=== PATIENT | male | born 1935 | race Two or more races ===

== ENCOUNTER 2024-09-11 14:59 | Observation (INO) | payer OTHER ==
[~2024-09-11] VITALS: Ht 172.7 cm; Wt 80.0 kg
[2024-09-11] MEDS ORDERED: VANCOMYCIN PER PHARMACY 0 MG IV SCH (16:00)
--- NOTE | 2024-09-11 16:04 | ED.PDOC ---
History of Present Illness(SKN HPI Comments Leandro Beltrán is a 89-year-old male patient who presents to the ED with chief complaint of bilateral foot wounds associated with bilateral lower limb swelling, per daughter is worse on the right side since it is larger in size, while left foot had smaller and multiple blisters, which started the day of his visit. Patient is wheelchair-bound, has been offered in multiple occasions The wounds are described as blisters filled with serous fluid. Daughter says that he presents isolated moments of confusion, but he is mainly well orientated. Denies fever, chills, chest pain, dyspnea, nausea, vomiting, diarrhea, bleeding, dysuria, oliguria, sick contacts and motor or sensory deficits. 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 Denies current tobacco, alcohol and other drug abuse Allergies: Statins (per family he presented severe adverse effect of altered mental status) Home medication: Lasix, spironolactone, losartan. Previously was on Flomax was discontinued because of low blood pressure Chief Complaint: Wound Check Time Seen by MD: 15:21 Primary Care Provider: mari Allergies: Coded Allergies: Statins (Unverified Adverse Reaction, Unknown, 09/11/24) Patint presented altered mental status Mode of Arrival: Ambulatory Physical Exam General Appearance: No Apparent Distress, Normal HEENT: Normal ENT Inspection, Pharynx Normal, TMs Normal Neck: Full Range of Motion, Non-Tender, Normal, Normal Inspection Respiratory: Chest Non-Tender, Lungs Clear, No Accessory Muscle Use, No Respiratory Distress, Normal Breath Sounds Cardiovascular: No Edema, No JVD, No Murmur, No Gallop, Normal Peripheral Pulses, Regular Rate/Rhythm Breast Exam: Deferred Gastrointestinal: No Organomegaly, Non Tender, No Pulsatile Mass, Normal Bowel Sounds, Soft Genitalia: Deferred Pelvic: Deferred Rectal: Deferred Extremities: Leg edema, Normal capillary refill, Normal range of motion, Pedal edema, Swelling, Tender Neurologic: Alert, 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 Was a procedure done?: No Differential Diagnosis (INTG) Differential Diagnosis: Cellulitis, Laceration, Puncture Wound Differential Diagnosis: Other (Peripheral vascular disease) Differential Diagnosis: Other (Abscess) Abscess: Abscess, Gas Gangrene Differential Diagnosis: Osteomyelitis X-Ray, Labs, Meds, VS Vital Signs Date Time Temp Pulse Resp B/P (MAP) Pulse Ox O2 Delivery O2 Flow Rate FiO2 09/12/24 08:17 97.5 86 17 108/57 (74) 95 97.5 09/12/24 02:14 80 18 101/72 (82) 90 09/11/24 18:26 97 17 99 Room Air* 0 21 09/11/24 17:48 98.0 97 17 146/72 (96) 99 98.0 09/11/24 15:15 97.4 87 20 157/96 (116) 99 Lab Test 09/12/24 08:03 09/11/24 19:30 09/11/24 17:10 09/11/24 17:00 Range/Units White Blood Count 8.9 9.1 4.4-10.8 10^3/uL Red Blood Count 3.60 L 3.91 L 4.5-5.90 10^6/uL Hemoglobin 12.7 L 13.7 13.5-17.5 g/dL Hematocrit 36.7 L 39.6 L 41.0-53.0 % Mean Corpuscular Volume 102.0 H 101.4 H 80.0-100.0 fL Mean Corpuscular Hemoglobin 35.3 H 35.0 H 28.0-32.0 pg Mean Corpuscular Hemoglobin Concent 34.6 34.5 32.0-36.0 g/dL Red Cell Distribution Width 15.6 H 16.0 H 11.8-14.3 % Platelet Count 113 L 116 L 140-450 10^3/uL Mean Platelet Volume 7.8 8.3 6.9-10.8 fL Neutrophils (%) (Auto) 66.6 70.4 37.0-80.0 % Lymphocytes (%) (Auto) 17.1 14.4 10.0-50.0 % Monocytes (%) (Auto) 12.9 H 12.9 H 0.0-12.0 % Eosinophils (%) (Auto) 2.8 2.0 0.0-7.0 % Basophils (%) (Auto) 0.6 0.3 0.0-2.0 % Neutrophils # (Auto) 5.9 6.4 1.6-8.6 10 ^3/uL Lymphocytes # (Auto) 1.5 1.3 0.4-5.4 10 ^3/uL Monocytes # (Auto) 1.1 1.2 0-1.3 10 ^3/uL Eosinophils # (Auto) 0.2 0.2 0-0.8 10 ^3/uL Basophils # (Auto) 0.1 0 0-0.2 10 ^3/uL Nucleated Red Blood Cells 0.2 0.1 % Creatinine 1.05 0.91 0.700-1.30 mg/dL Glomerular Filtration Rate Calc 68 81 >90 mL/min Random Vancomycin Level 4.7 L 5-10 ug/mL Lactic Acid Level 2.2 *H 3.2 *H 0.4-2.0 mmol/L Free Thyroxine (T4) Calculated 1.18 0.89-1.76 ng/dL Free Triiodothyronine (T3) pg/mL 2.85 2.3-4.2 pg/mL Hepatitis A IgM Antibody Pending Hepatitis B Surface Antigen Pending Hepatitis B Core IgM Antibody Pending Hepatitis C Antibody Pending Prothrombin Time 11.9 H 9.3-11.8 sec Prothrombin Time INR 1.14 0.9-1.15 Activated Partial Thromboplast Time 31.4 24.5-34.5 SEC Sodium Level 137 136-145 mmol/L Potassium Level 4.0 3.5-5.1 mmol/L Chloride Level 102 98-107 mmol/L Carbon Dioxide Level 30 20-31 mmol/L Anion Gap 5 5-15 Blood Urea Nitrogen 21 9-23 mg/dL BUN/Creatinine Ratio 23.1 H 10.0-20.0 Serum Glucose 91 74-106 mg/dL Calcium Level 9.2 8.7-10.4 mg/dL Magnesium Level 1.9 1.6-2.6 mg/dL Total Bilirubin 3.4 H 0.2-1.0 mg/dL Aspartate Amino Transferase (AST) 63 H 13-40 U/L Alanine Aminotransferase (ALT) 49 H 7-40 U/L Alkaline Phosphatase 295 H 46-116 U/L Total Protein 6.6 5.7-8.2 g/dL Albumin 3.2 3.2-4.8 g/dL Thyroid Stimulating Hormone (TSH) 5.27 H 0.55-4.78 uIU/mL Ammonia 39 H 11-32 umol/L Test 09/11/24 16:32 Range/Units Urine Color Yellow Yellow Urine Clarity Clear Clear Urine pH 6.5 5.0-9.0 Urine Specific [place] 1.010 1.001-1.035 Urine Protein Negative Negative Urine Ketones Negative Negative Urine Blood Negative Negative /uL Urine Nitrite Negative Negative Urine Bilirubin Negative Negative Urine Urobilinogen 4 H Negative mg/dL Urine Leukocyte Esterase 1+ Negative /uL Urine RBC 1 0 - 3 /hpf Urine WBC 6 0 - 3 /hpf Urine Squamous Epithelial Cells Few <5 /hpf Urine Amorphous Crystals Few None Seen /hpf Urine Bacteria None seen None Seen /hpf Urine Hyaline Casts Few 0 - 2 /lpf Urine Glucose Normal Normal mg/dL Urine Opiates Screen Neg NEGATIVE Urine Fentanyl Screen Neg NEGATIVE Urine Barbiturates Screen Neg NEGATIVE Urine Phencyclidine Screen Neg NEGATIVE Urine Amphetamines Screen Neg NEGATIVE Urine Benzodiazepines Screen Neg NEGATIVE Urine Cocaine Screen Neg NEGATIVE Urine Cannabinoids Screen Pos NEGATIVE Microbiology Date/Time Source Procedure Growth Status 09/11/24 17:00 Blood Blood Culture - Preliminary NO GROWTH AFTER 24 HOURS OF INCUBATION. Resulted 09/11/24 17:00 Blood Blood Culture - Preliminary NO GROWTH AFTER 24 HOURS OF INCUBATION. Resulted 09/11/24 16:32 Voided Urine Urine Culture - Preliminary Resulted PROCEDURE(s): BLEAD - BiLat Low Ext Art Duplex REASON: Bilateral foot wound ORDER NUMBER(s): [id number], ACCESSION NUMBER(s): [id number] EXAM: US BILAT LOW EXT ART DUPLEX HISTORY: Bilateral foot wound COMPARISON: None TECHNIQUE: Real-time grayscale and color Doppler images of the bilateral lower extremities were obtained with spectral waveform analysis. Findings: Arterial peak systolic velocities reported in units of centimeters per second (cm/sec): Right side: Common femoral - 154 Profunda femoris - 316 Proximal SFA - 89 Mid SFA - 240 Distal SFA - 59 Popliteal - 75 Posterior tibial - 0 Dorsalis pedis - not visualized Diffuse monophasic waveforms. Left side: Common femoral - 126 Profunda femoris - 166 Proximal SFA - 82 Mid SFA - 54 Distal SFA - 47 Popliteal - 61 Posterior tibial - 40 Dorsalis pedis - not visualized Diffuse monophasic waveforms. IMPRESSION: 1. 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 2. 50-75% stenosis of the right profunda femoris and mid superficial femoral arteries. 3. Approximately 30-49% stenosis of the right common femoral and left profunda femoris arteries. Critical Result: Vascular occlusion Findings discussed with Dr. Pool at 09/11/2024 05:45 PM, and acknowledged receipt and understanding of the findings. Patient alert. Chronic symptom. Vitals stable. Answering all questions. CT shows decreased flow. Spoke with [facility] physician. Will be followed by our vascular surgeon. Reviewed his history. Explained to the patient. Continue cardiac monitoring. X-Ray, Labs, Meds, VS Comment Addendum by Dr. Corine Park: Patient seen and evaluated in conjunction with Dr. Rao. Agree with assessment, treatment and plan. On my exam, there is capillary refill to both lower extremities, although the DP pulse is nonpalpable on the right lower extremity. The lower extremities are equally cool to the touch bilaterally. Right lower extremity arterial duplex: IMPRESSION: 1. 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 2. 50-75% stenosis of the right profunda femoris and mid superficial femoral arteries. 3. Approximately 30-49% stenosis of the right common femoral and left profunda femoris arteries. Critical Result: Vascular occlusion I discussed the case with hospitalist, Dr. Quiñones, who evaluated the patient in the ED. He ordered CT angio of the left lower extremity to further evaluate the arterial system, as it is unclear whether or not cardiology or vascular surgery would be able to address the occlusion here. Patient may require higher level of care transfer for vascular surgical evaluation. He requested we recontact him when CT angio results are available. Patient endorsed to the overnight ED physician Dr. Peterson follow-up on CT angio results and recontact Dr. Quiñones for disposition. Time of 1ST Reevaluation: 22:49 Reevaluation 1ST: Improved Patient Education/Counseling: Diagnosis, Treatment Family Education/Counseling: Diagnosis, Treatment Departure 1 Departure Time of Disposition: 22:49 Impression: Primary Impression: Wound, open, foot Qualified Codes: S91.301A - Unspecified open wound, right foot, initial encounter Additional Impressions: Cellulitis of right lower extremity Occlusion of artery of lower extremity Disposition: ADMITTED INPATIENT Admit to: Med Surg Condition: Guarded Critical Care Note Critical Care Time?: Yes (45 min-critical care time only) Critical care comment: Critical care time including multiple bedside re-evaluations, review of lab and imaging studies, and discussion of the case with the admitting provider. Patient is high risk for hemodynamic and/or metabolic decompensation. Stability Stability form required: No Heart Score Heart Score: Heart Score Response (Comments) Value History N/A 0 EKG N/A 0 Age N/A 0 Risk Factors N/A 0 Troponin N/A 0 Total 0 TY RAO Sep 11, 2024 16:03 VERONICA ROWELL MD Sep 11, 2024 22:55 ROXY ESPINOZA MD Sep 12, 2024 08:31
--- NOTE | 2024-09-11 16:06 | DVH ---
XY CHEST TWO VIEWS ROUTINE CLINICAL HISTORY: CHF COMPARISON: None TECHNIQUE: Frontal and lateral view of the chest was obtained FINDINGS: Lines and Tubes: None Lungs: No focal consolidation. Pleura: Small bilateral effusions. Cardiomediastinal contours: Unremarkable Bones: No acute osseous abnormality. IMPRESSION: Small bilateral effusions.
[2024-09-11] MEDS ORDERED: VANCOMYCIN 1GM/250ML KIT 250 ML IV ONE (16:30)
--- NOTE | 2024-09-11 17:02 | DVH ---
BILATERAL LOWER EXTREMITY VENOUS DOPPLER CLINICAL HISTORY: Bilateral feet wound Technique: Duplex Doppler evaluation of the deep venous systems of both lower extremities from the co mmon femoral veins to the popliteal veins including color Doppler and spectral/pulsed waveform analys is was performed. COMPARISON: None FINDINGS: The study is limited secondary to lower extremity edema. The distal right superficial femoral and lef t posterior tibial veins are not adequately seen on the current study. The right and left common femoral, left superficial femoral, popliteal, right posterior tibial and p eroneal veins appear patent with normal augmentation, phasicity, compressibility and color-flow. IMPRESSION: 1. There is no sonographic evidence for DVT in the visualized bilateral lower extremity veins. 2. The distal right superficial femoral and left popliteal veins are not adequately seen on the curre nt study. HS:Y
[2024-09-11 17:31] LABS: Basophils # (auto) 0 10 ^3/uL (0-0.2); Eosinophils # (auto) 0.2 10 ^3/uL (0-0.8); Hemoglobin 13.7 g/dL (13.5-17.5); Monocytes # (auto) 1.2 10 ^3/uL (0-1.3); Monocytes % (auto) 12.9 % (0.0-12.0); Neutrophils # (auto) 6.4 10 ^3/uL (1.6-8.6)
--- NOTE | 2024-09-11 17:31 | DVH ---
INDICATION: Liver cirrhosis. Evaluate ascitic fluid TECHNIQUE: Multiple real-time sonographic images of the abdomen were obtained. COMPARISON: None FINDINGS: Hepatic parenchyma is echogenic suggesting steatosis. The liver measures 14 cm in length cm. No intrahepatic biliary ductal dilatation is noted. The gallbladder wall measures 0.4 cm and is unremarkable. Cholelithiasis noted. The common duct is not visualized. The right kidney measures 10.7 cm. No hydronephrosis. There is a 1.5 cm anechoic lesion midpole righ t kidney consistent with the cortical cyst. The pancreas is not well visualized due to obscuration from bowel gas. The visualized portions of the IVC and aorta are grossly unremarkable. IMPRESSION: 1. Liver measures 14 cm in length with findings suggesting steatosis. 2. Cholelithiasis is noted with mild thickening of the gallbladder wall. Common bile duct was not vis ualized. Ultrasound Granado's sign was not performed. HS:Y
[2024-09-11 17:32] LABS: Basophils % (auto) 0.3 % (0.0-2.0); Hematocrit 39.6 % (41.0-53.0); Lymphocytes # (auto) 1.3 10 ^3/uL (0.4-5.4); Lymphocytes % (auto) 14.4 % (10.0-50.0); Mean Corpuscular Hgb Conc. 34.5 g/dL (32.0-36.0); Mean Corpuscular Volume 101.4 fL (80.0-100.0); Neutrophils % (auto) 70.4 % (37.0-80.0); Nucleated Red Blood Cells % 0.1 %; Platelet Count (auto) 116 10^3/uL (140-450); Red Blood Cells 3.91 10^6/uL (4.5-5.90); White Blood Cell 9.1 10^3/uL (4.4-10.8)
--- NOTE | 2024-09-11 17:47 | DVH ---
EXAM: US BILAT LOW EXT ART DUPLEX HISTORY: Bilateral foot wound COMPARISON: None TECHNIQUE: Real-time grayscale and color Doppler images of the bilateral lower extremities were obta ined with spectral waveform analysis. Findings: Arterial peak systolic velocities reported in units of centimeters per second (cm/sec): Right side: Common femoral - 154 Profunda femoris - 316 Proximal SFA - 89 Mid SFA - 240 Distal SFA - 59 Popliteal - 75 Posterior tibial - 0 Dorsalis pedis - not visualized Diffuse monophasic waveforms. Left side: Common femoral - 126 Profunda femoris - 166 Proximal SFA - 82 Mid SFA - 54 Distal SFA - 47 Popliteal - 61 Posterior tibial - 40 Dorsalis pedis - not visualized Diffuse monophasic waveforms. IMPRESSION: 1. 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 2. 50-75% stenosis of the right profunda femoris and mid superficial femoral arteries. 3. Approximately 30-49% stenosis of the right common femoral and left profunda femoris arteries. Critical Result: Vascular occlusion Findings discussed with Dr. Pool at 09/11/2024 05:45 PM, and acknowledged receipt and understanding of the findings.
[2024-09-11 17:54] LABS: INR 1.14 (0.9-1.15); Partial Thromboplastin Time 31.4 SEC (24.5-34.5); Prothrombin Time 11.9 sec (9.3-11.8)
[2024-09-11] MEDS: SPIRONOLACTONE 25 MG TAB PO ONE (18:02)
[2024-09-11 18:09] LABS: Albumin 3.2 g/dL (3.2-4.8); Anion Gap 5 (5-15); BUN/Creatinine Ratio 23.1 (10.0-20.0); Blood Urea Nitrogen 21 mg/dL (9-23); Calcium 9.2 mg/dL (8.7-10.4); Carbon Dioxide 30 mmol/L (20-31); Chloride 102 mmol/L (98-107); Glucose 91 mg/dL (74-106); Magnesium 1.9 mg/dL (1.6-2.6); Sodium 137 mmol/L (136-145)
[2024-09-11 18:12] LABS: Alanine Aminotransferase 49 U/L (7-40); Alkaline Phosphatase 295 U/L (46-116); Aspartate Aminotransferase 63 U/L (13-40); Bilirubin, Total 3.4 mg/dL (0.2-1.0); Total Protein 6.6 g/dL (5.7-8.2)
[2024-09-11 18:16] LABS: Lactic Acid w/Reflex 3.2 mmol/L (0.4-2.0)
[2024-09-11] MEDS: VANCOMYCIN 750MG KIT 100 ML IV ONE (18:25)
[2024-09-11 18:26] VITALS: PULSE 97; RESP 17; O2SAT 99
[2024-09-11 18:41] LABS: Urine Bacteria None Seen /hpf (None Seen)
[2024-09-11] MEDS: SODIUM CHLORIDE 0.9% 1,000 ML IV SCH (18:43)
[2024-09-11] MEDS: ASPirin 81 mg TAB PO ONE (18:43)
[2024-09-11] MEDS: FUROSEMIDE 40 MG/4 ML VIAL IV ONE (18:59)
[2024-09-11 19:13] LABS: Urine Amorphous Crystal FEW /hpf (None Seen); Urine Blood Negative /uL (Negative); Urine Clarity Clear (Clear); Urine Color Yellow (Yellow); Urine Hyaline Cast FEW /lpf (0 - 2); Urine Protein, UAD Negative (Negative); Urine Squamous Epithelial Cell FEW /hpf (<5); Urine Urobilinogen 4 mg/dL (Negative); Urine WBC 6 /hpf (0 - 3); Urine pH 6.5 (5.0-9.0)
[2024-09-11 19:17] LABS: Amphetamine Screen, Urine Neg (NEGATIVE); Barbiturate Scree,Urine Neg (NEGATIVE); Benzodiazephine Screen, Urine Neg (NEGATIVE); Cannabinoid Screen, Urine Pos (NEGATIVE); Cocaine Screen, Urine Neg (NEGATIVE); Opiate Scree,Urine Neg (NEGATIVE); Phencyclidine Screen, Urine Neg (NEGATIVE)
[2024-09-11 20:56] LABS: Free T3 2.85 pg/mL (2.3-4.2); Free T4 (Free Thyroxine) 1.18 ng/dL (0.89-1.76)
[2024-09-11] MEDS: PIPERACILLIN-TAZOB 3.375GM 100 ML IV ONE (22:55)
[2024-09-11] MEDS: IOHEXOL 350 MG/ML 100ML IJ ONE (23:29)
--- NOTE | 2024-09-12 03:09 | DVH ---
Examination: CTALEW CLINICAL INDICATION: Eval RLE art occlusion. COMPARISON: None. CONTRAST USED: Intravenous. TECHNIQUE: Axial images were obtained through the abdomen with run off. Sagittal, coronal, and obliq ue reconstructions were included, as well as MIP reconstruction. 3-D reconstructed images are also pe rformed. CT scan done according to ALARA (As Low As Reasonably Achievable). TECHNICAL QUALITY: Adequate. FINDINGS: ARTERIES AND VESSELS: Moderate atherosclerotic plaques are seen involving the descending abdominal aorta. Approximately 50% luminal stenosis is seen involving the descending abdominal aorta just proximal to the bifurcation. Moderate atherosclerotic plaques are seen involving bilateral common, internal iliac arteries causing moderate luminal narrowing. Moderate scattered atherosclerotic plaques are seen involving bilateral common, superficial and deep, popliteal arteries causing moderate multisegmental luminal narrowing. Severe atherosclerotic calcifications of bilateral anterior, posterior tibial and peroneal arteries c ausing multisegmental severe narrowing and showing subtle patchy opacification. Moderate subcutaneous edema seen in bilateral lower limbs. Small bilateral inguinal hernia is seen. Mild prostatomegaly. Rest of the visualized major abdominal organs appear unremarkable. IMPRESSION: 1. Moderate atherosclerotic plaques are seen involving the descending abdominal aorta. 2. Approximately 50% luminal stenosis is seen involving the descending abdominal aorta just proximal to the bifurcation. Moderate atherosclerotic plaques are seen involving bilateral common, internal i liac arteries causing moderate luminal narrowing. 3. Moderate scattered atherosclerotic plaques are seen involving bilateral common, superficial and d eep, popliteal arteries causing moderate multisegmental luminal narrowing. 4. Severe atherosclerotic calcifications of bilateral anterior, posterior tibial and peroneal arteri es causing multisegmental severe narrowing and showing subtle patchy opacification. 5. Moderate subcutaneous edema seen in bilateral lower limbs. 6. Small bilateral inguinal hernia is seen. 7. Mild prostatomegaly. Electronically Signed 09/12/2024 03:08 Irina Pearce
[2024-09-12 08:25] LABS: Basophils # (auto) 0.1 10 ^3/uL (0-0.2); Basophils % (auto) 0.6 % (0.0-2.0); Eosinophils # (auto) 0.2 10 ^3/uL (0-0.8); Eosinophils % (auto) 2.8 % (0.0-7.0); Hematocrit 36.7 % (41.0-53.0); Hemoglobin 12.7 g/dL (13.5-17.5); Lymphocytes # (auto) 1.5 10 ^3/uL (0.4-5.4); Lymphocytes % (auto) 17.1 % (10.0-50.0); Mean Corpuscular Hemoglobin 35.3 pg (28.0-32.0); Mean Corpuscular Hgb Conc. 34.6 g/dL (32.0-36.0); Monocytes # (auto) 1.1 10 ^3/uL (0-1.3); Monocytes % (auto) 12.9 % (0.0-12.0); Neutrophils # (auto) 5.9 10 ^3/uL (1.6-8.6); Neutrophils % (auto) 66.6 % (37.0-80.0); Nucleated Red Blood Cells % 0.2 %; Platelet Count (auto) 113 10^3/uL (140-450); Red Cell Distribution Width 15.6 % (11.8-14.3); White Blood Cell 8.9 10^3/uL (4.4-10.8)
[2024-09-12] MEDS ORDERED: NITROGLYCERIN 0.4 MG SL TAB SL PRN (08:30)
[2024-09-12] MEDS ORDERED: MORPHINE SULFATE INJ 2 MG/ml SYRG IV PRN (08:30)
[2024-09-12] MEDS ORDERED: HYDROcodone-ACET 5/325MG TAB PO PRN (08:30)
[2024-09-12] MEDS ORDERED: ACETAMINOPHEN 325 MG TAB PO PRN (08:30)
[2024-09-12] MEDS: LACTULOSE 20Gm/30ML SOLN PO SCH (10:27)
[2024-09-12] MEDS: ASPirin 81 mg TAB PO SCH (10:28)
[2024-09-12] MEDS: SPIRONOLACTONE 25 MG TAB PO SCH (10:29)
[2024-09-12] MEDS: LOSARTAN POTASSIUM 25 MG TAB PO SCH (10:30)
[2024-09-12] MEDS: FUROSEMIDE 40 MG/4 ML VIAL IV SCH (10:33)
[2024-09-12 10:38] VITALS: PULSE 87; O2SAT 98
--- NOTE | 2024-09-12 13:18 | DVHCONRES ---
Date Seen: Sep 12, 2024 Resident Creating Document: MARTHA VENTURA Jr., MD Referring Physician Jelani Reason for Consultation peripheral vascular disease History of Present Illness Leandro Beltrán is a 89-year-old male patient who presents to the ED with chief complaint of bilateral foot wounds associated with bilateral lower limb swelling, per daughter is worse on the right side since it is larger in size, while left foot had smaller and multiple blisters, which started the day of his visit. Patient is wheelchair-bound. The wounds are described as blisters filled with serous fluid. Denies fever, chills, chest pain, dyspnea, nausea, vomiting, diarrhea, bleeding, dysuria, oliguria, sick contacts and motor or sensory deficits. Prior extremity interventions for vascular disease. Past Medical History Hypertension, COPD with no oxygen requirement, CHF, liver cirrhosis, history of colon cancer status post colectomy, prostate cancer under hormonal treatment, eventration, sacral wound, wheelchair-bound, BPH Past Surgical History Colectomy Family History Noncontributory Social History Former smoker 30 pack plus history drinks approximately 6 beers a day Allergies: Coded Allergies: Statins (Unverified Adverse Reaction, Unknown, 09/11/24) Patint presented altered mental status Current Medications Current Medications Medications (Trade) Dose Ordered Sig/Pricilla Route PRN Reason Start Time Stop Time Status Last Admin Vancomycin HCl 0 ml @ 0 mls/hr UD IV 09/11/24 16:00 Spironolactone (Aldactone) 25 mg DAILY PO 09/12/24 10:00 09/12/24 10:29 Furosemide (Lasix Injection) 40 mg DAILY IV 09/12/24 10:00 09/12/24 10:33 Losartan Potassium (Cozaar Tablet) 25 mg DAILY PO 09/12/24 10:00 09/12/24 10:30 Sodium Chloride 1,000 ml @ 75 mls/hr [id number] IV 09/11/24 18:30 09/12/24 08:10 Aspirin 81 mg DAILY PO 09/12/24 10:00 09/12/24 10:28 Lactulose 15 ml DAILY PO 09/12/24 10:00 09/12/24 10:27 Acetaminophen (Tylenol Tablet) 325 mg Q4HP PRN PO MILD PAIN (1-3 PAIN SCALE) 09/12/24 08:30 Acetaminophen/ Hydrocodone Bitart ([place] 5/325MG Tab) 1 tab Q4HP PRN PO MODERATE PAIN (4-6 PAIN SCALE) 09/12/24 08:30 Morphine Sulfate 2 mg Q4HPRN PRN IV SEVERE PAIN (7-10 PAIN SCALE) 09/12/24 08:30 Nitroglycerin (Ntrostat Sublingual) 0.4 mg Q5MINP PRN SL FOR CHEST PAIN 09/12/24 08:30 Morphine Sulfate 2 mg Q30M PRN IV FOR CHEST PAIN 09/12/24 08:30 Review of Systems All systems otherwise reviewed otherwise negative what was in HPI. Vital Signs Vital Signs Date Time Temp Pulse Resp B/P (MAP) Pulse Ox O2 Delivery O2 Flow Rate FiO2 09/12/24 10:38 87 98 Nasal Cannula* 2 28 09/12/24 10:33 121/54 09/12/24 08:17 97.5 17 97.5 Physical Exam Head eyes ears nose and throat exam eyes are nonicteric conjunctiva is pink neck was supple no JVD no lymphadenopathy no carotid bruits lungs are clear to auscultation heart was regular rate and rhythm abdomen is soft nontender with no pulsatile abdominal mass or bruits lower extremities palpable femoral pulses nonpalpable pedal pulses he has 2+ pitting edema with blisters on the right foot. He has ischemic ulcers on his left foot including multiple toes. Labs/Diagnostic Data Labs Test 09/12/24 08:03 09/11/24 19:30 09/11/24 17:10 09/11/24 17:00 Range/Units White Blood Count 8.9 4.4-10.8 10^3/uL Red Blood Count 3.60 L 4.5-5.90 10^6/uL Hemoglobin 12.7 L 13.5-17.5 g/dL Hematocrit 36.7 L 41.0-53.0 % Mean Corpuscular Volume 102.0 H 80.0-100.0 fL Mean Corpuscular Hemoglobin 35.3 H 28.0-32.0 pg Mean Corpuscular Hemoglobin Concent 34.6 32.0-36.0 g/dL Red Cell Distribution Width 15.6 H 11.8-14.3 % Platelet Count 113 L 140-450 10^3/uL Mean Platelet Volume 7.8 6.9-10.8 fL Neutrophils (%) (Auto) 66.6 37.0-80.0 % Lymphocytes (%) (Auto) 17.1 10.0-50.0 % Monocytes (%) (Auto) 12.9 H 0.0-12.0 % Eosinophils (%) (Auto) 2.8 0.0-7.0 % Basophils (%) (Auto) 0.6 0.0-2.0 % Neutrophils # (Auto) 5.9 1.6-8.6 10 ^3/uL Lymphocytes # (Auto) 1.5 0.4-5.4 10 ^3/uL Monocytes # (Auto) 1.1 0-1.3 10 ^3/uL Eosinophils # (Auto) 0.2 0-0.8 10 ^3/uL Basophils # (Auto) 0.1 0-0.2 10 ^3/uL Nucleated Red Blood Cells 0.2 % Creatinine 1.05 0.700-1.30 mg/dL Glomerular Filtration Rate Calc 68 >90 mL/min Random Vancomycin Level 4.7 L 5-10 ug/mL Lactic Acid Level 2.2 *H 0.4-2.0 mmol/L Free Thyroxine (T4) Calculated 1.18 0.89-1.76 ng/dL Free Triiodothyronine (T3) pg/mL 2.85 2.3-4.2 pg/mL Prothrombin Time 11.9 H 9.3-11.8 sec Prothrombin Time INR 1.14 0.9-1.15 Activated Partial Thromboplast Time 31.4 24.5-34.5 SEC Sodium Level 137 136-145 mmol/L Potassium Level 4.0 3.5-5.1 mmol/L Chloride Level 102 98-107 mmol/L Carbon Dioxide Level 30 20-31 mmol/L Anion Gap 5 5-15 Blood Urea Nitrogen 21 9-23 mg/dL BUN/Creatinine Ratio 23.1 H 10.0-20.0 Serum Glucose 91 74-106 mg/dL Calcium Level 9.2 8.7-10.4 mg/dL Magnesium Level 1.9 1.6-2.6 mg/dL Total Bilirubin 3.4 H 0.2-1.0 mg/dL Aspartate Amino Transferase (AST) 63 H 13-40 U/L Alanine Aminotransferase (ALT) 49 H 7-40 U/L Alkaline Phosphatase 295 H 46-116 U/L Total Protein 6.6 5.7-8.2 g/dL Albumin 3.2 3.2-4.8 g/dL Thyroid Stimulating Hormone (TSH) 5.27 H 0.55-4.78 uIU/mL Ammonia 39 H 11-32 umol/L Test 09/11/24 16:32 Range/Units Urine Color Yellow Yellow Urine Clarity Clear Clear Urine pH 6.5 5.0-9.0 Urine Specific [place] 1.010 1.001-1.035 Urine Protein Negative Negative Urine Ketones Negative Negative Urine Blood Negative Negative /uL Urine Nitrite Negative Negative Urine Bilirubin Negative Negative Urine Urobilinogen 4 H Negative mg/dL Urine Leukocyte Esterase 1+ Negative /uL Urine RBC 1 0 - 3 /hpf Urine WBC 6 0 - 3 /hpf Urine Squamous Epithelial Cells Few <5 /hpf Urine Amorphous Crystals Few None Seen /hpf Urine Bacteria None seen None Seen /hpf Urine Hyaline Casts Few 0 - 2 /lpf Urine Glucose Normal Normal mg/dL Urine Opiates Screen Neg NEGATIVE Urine Fentanyl Screen Neg NEGATIVE Urine Barbiturates Screen Neg NEGATIVE Urine Phencyclidine Screen Neg NEGATIVE Urine Amphetamines Screen Neg NEGATIVE Urine Benzodiazepines Screen Neg NEGATIVE Urine Cocaine Screen Neg NEGATIVE Urine Cannabinoids Screen Pos NEGATIVE Microbiology Date/Time Source Procedure Growth Status 09/11/24 16:32 Voided Urine Urine Culture - Preliminary Resulted PROCEDURE(s): CTALEW - CT ANGIO LOWER EXTREMITY W REASON: eval RLE art occlusion ORDER NUMBER(s): [id number], ACCESSION NUMBER(s): [id number] Examination: CTALEW CLINICAL INDICATION: Eval RLE art occlusion. COMPARISON: None. CONTRAST USED: Intravenous. TECHNIQUE: Axial images were obtained through the abdomen with run off. Sagittal, coronal, and oblique reconstructions were included, as well as MIP reconstruction. 3-D reconstructed images are also performed. CT scan done according to ALARA (As Low As Reasonably Achievable). TECHNICAL QUALITY: Adequate. FINDINGS: ARTERIES AND VESSELS: Moderate atherosclerotic plaques are seen involving the descending abdominal aorta. Approximately 50% luminal stenosis is seen involving the descending abdominal aorta just proximal to the bifurcation. Moderate atherosclerotic plaques are seen involving bilateral common, internal iliac arteries causing moderate luminal narrowing. Moderate scattered atherosclerotic plaques are seen involving bilateral common, superficial and deep, popliteal arteries causing moderate multisegmental luminal narrowing. Severe atherosclerotic calcifications of bilateral anterior, posterior tibial and peroneal arteries causing multisegmental severe narrowing and showing subtle patchy opacification. Moderate subcutaneous edema seen in bilateral lower limbs. Small bilateral inguinal hernia is seen. Mild prostatomegaly. Rest of the visualized major abdominal organs appear unremarkable. IMPRESSION: 1. Moderate atherosclerotic plaques are seen involving the descending abdominal aorta. 2. Approximately 50% luminal stenosis is seen involving the descending abdominal aorta just proximal to the bifurcation. Moderate atherosclerotic plaques are seen involving bilateral common, internal iliac arteries causing moderate luminal narrowing. 3. Moderate scattered atherosclerotic plaques are seen involving bilateral common, superficial and deep, popliteal arteries causing moderate multisegmental luminal narrowing. 4. Severe atherosclerotic calcifications of bilateral anterior, posterior tibial and peroneal arteries causing multisegmental severe narrowing and showing subtle patchy opacification. 5. Moderate subcutaneous edema seen in bilateral lower limbs. 6. Small bilateral inguinal hernia is seen. 7. Mild prostatomegaly. Assessment 89-year-old male was ischemic foot ulcers was moderate to severe bilateral peripheral vascular disease We will perform aortogram with bilateral lower extremity runoff with possible endovascular revascularization tomorrow September 13, 2024. NPO after midnight Patient understands the diagnosis and the potential options for treatment is willing to proceed. Plan/Recommendation 89-year-old male was ischemic foot ulcers was moderate to severe bilateral peripheral vascular disease We will perform aortogram with bilateral lower extremity runoff with possible endovascular revascularization tomorrow September 13, 2024. NPO after midnight Patient understands the diagnosis and the potential options for treatment is willing to proceed. Plan discussed with: Patient MARTHA VENTURA Jr., MD Sep 12, 2024 13:17
--- NOTE | 2024-09-12 19:17 | DVHHP ---
ADMIT DATE: 09/12/2024 CHIEF COMPLAINT: Coming in with bilateral lower extremity blisters, swelling and pain. HISTORY OF PRESENT ILLNESS: An 89-year-old male with significant past medical history for cirrhosis, chronic lower extremity edema, chronic left lower extremity wound, history of essential hypertension, who presents to Emergency Room with a chief complaint as stated above. The patient apparently was hospitalized back in July at [facility] due to excessive swelling and anasarca, was IV diuresed at that time. The patient was also struggling with left lower limb chronic wounds. The patient does have a wound care at home. The patient says recently the patient feels that his leg swelling has gone worse. He does have fluid-filled blisters on both his feet and more recently large ones on his right side that are new in the last few days. The patient denies any fevers or chills and is wheelchair bound and typically says prior to these hospitalizations, was able to use a walker in the past, but in the last few months, has been using a wheelchair to get around. He denies any shortness of breath or chest pain. He does have intermittent cough and phlegm occasionally. He has no nausea, no vomiting, no palpitations, no dizziness. PAST MEDICAL HISTORY: Hypertension, COPD, cirrhosis, history of colon cancer status post colectomy, history of prostate cancer and benign prostate hypertrophy. PAST SURGICAL HISTORY: He had a colectomy in 2009. SOCIAL HISTORY: No tobacco, no alcohol, no illicit drugs. MEDICATIONS AT HOME: Per medical reconciliation. MEDICATION ALLERGIES: No known drug allergies. REVIEW OF SYSTEMS: A 10-point review of systems was covered with the patient and was negative, with the exception to all present in history of present illness. PHYSICAL EXAMINATION: VITAL SIGNS: Temperature 97.5, pulse rate of 86, respiratory rate of 17, blood pressure 108/57, pulse ox about 95%-99% on room air. GENERAL: Seems to be alert and oriented to self, time, and place, not in acute distress, male, sitting up in a wheelchair. HEENT: Normocephalic, atraumatic. Extraocular muscles were intact. Pupils were equally round, reactive to light and accommodations. Mucous membranes are moist. CARDIOVASCULAR: S1, S2 positive, regular rate and rhythm. No rubs, gallops or murmurs. LUNGS: Seems to be clear to auscultation bilaterally. No wheezing, rhonchi or rales. ABDOMEN: Seems to be soft, nontender, obese. Bowel sounds are present. EXTREMITIES: The patient does have lower extremity edema bilaterally, mostly concentrated in bilateral feet with fluid-filled blisters predominantly on the right foot. There seems to be multiple open wounds on his left foot extremity, on multiple distal ends of his toes. NEUROLOGIC: Cranial nerves testing II through XII overall seems to be intact. LABORATORY WORKUP: Showed a white count of 9.1, H and H of 13.0 and 39.6, platelet count of 116,000. Sodium of 137, potassium 4.0, chloride 102, carbon dioxide of 30, anion gap of 5, BUN of 21, creatinine 0.91, serum glucose of 91, lactic acid of 3.3, repeat of 2.2. Total bilirubin of 3.4, AST of 63 and ALT of 49 with alkaline phosphatase of 295. TSH of 5.27, free T4 of 1.18, and T3 of 2.85. Urinalysis is 1+ leukocyte esterase, WBCs of 6, no nitrites. Toxicology screening was negative. Serology testing for hepatitis A, B and C is currently pending. Blood cultures, urine cultures were sent out. IMAGING: Chest x-ray shows small bilateral effusions. Venous duplex bilateral lower extremities shows there is no sonographic evidence for DVT in the visualized bilateral lower extremity veins. The distal right superficial femoral and left popliteal veins are not adequately seen on the current study. Arterial duplex of bilateral lower extremities findings shows complete occlusion of the right posterior tibial artery, 50%-75% stenosis of the right profunda, femoris and mid superficial femoral arteries, approximately 30%-49% stenosis of the right common femoral and left profunda femoris arteries and critical result of vascular occlusion. Right upper quadrant ultrasound was also completed, shows liver measures about 14 cm in length with findings suggestive of steatosis. Cholelithiasis is noted with mild thickening of the gallbladder wall. Common bile duct was not visualized. Ultrasound, Granado's sign was not completed. CT angiogram of bilateral lower extremities were also completed. Impression: Moderate atherosclerotic plaque are seen involving the descending abdominal aorta, approximately 50% luminal stenosis is seen involving the descending abdominal aorta just proximal to the bifurcation, moderate atherosclerotic plaque are seen involving the bilateral common and internal iliac arteries causing moderate luminal narrowing, moderate scattered atherosclerotic plaques are seen involving bilateral common, superficial and deep popliteal arteries causing moderate multisegment luminal narrowing, moderate subcutaneous edema seen in bilateral lower limbs, small bilateral inguinal hernias seen, mild prostatomegaly. DIAGNOSES: * Peripheral vascular disease. * Left foot nonhealing wound. SECONDARY DIAGNOSES: Cirrhosis, chronic thrombocytopenia, chronic venous stasis. PLAN: The patient will be admitted to the medical surgical floor for continuous monitoring. Consultation with Vascular Surgery has been requested. The patient's findings seems to be consistent with chronic nonhealing wounds of the left foot secondary to diffuse peripheral vascular disease with findings of significant atherosclerotic calcifications of bilateral anterior and posterior tibial and peroneal arteries causing multisegmental severe narrowing and showing septal patchy opacifications. The patient's condition leading to his nonhealing left foot wounds seems to be consistent with poor circulation. The patient has been treated on multiple occasions with IV antibiotics recently last month at [place] with prolonged oral antibiotics for this extremity patient's findings on examination likely again due to peripheral vascular disease and chronic venous stasis leading to the patient's erythema changes of the skin. The patient's skin is nontender to palpation and is actual cool to touch rather than warm. The patient is unlikely experiencing cellulitis at this point and more likely experiencing severe circulation issues leading to his pathology. Despite this, the patient will be placed on Zosyn 3.375 IV every 6 hours prophylactically for possibility of underlying infection. The patient is currently afebrile and no leukocytosis, The patient did have blood cultures sent out as well. Vascular Surgery is going to try to schedule the patient for revascularization surgery for tomorrow and the patient will be maintained n.p.o. after midnight. The patient to have CBC, BMP every morning. The patient will be resumed back on his home Lasix medications and currently will be converted to Lasix 40 IV daily, strict I's and O's to be implemented. The patient will be resumed back on his losartan 25 mg once a day for his blood pressure control as well as spironolactone 25 mg once a day as well as aspirin enteric coated 81 mg a day. The patient is a full code. Further recommendations will depend on the patient's progression. Neto Cortez MD LM/KALEB TID: [id number] RECEIPT: [id number]
[2024-09-12] MEDS: MORPHINE SULFATE INJ 2 MG/ml SYRG IV PRN (19:42)
[2024-09-12 22:45] VITALS: PULSE 75; RESP 18; O2SAT 94
[2024-09-12 22:50] VITALS: BP 124/55; PULSE 75; RESP 18; TEMP 98; O2SAT 94
[2024-09-13 05:00] VITALS: BP 118/79; PULSE 86; RESP 20; TEMP 97.7; O2SAT 99
[2024-09-13] MEDS: IODIXANOL 320MG/ML 100ML BTL IV ONE (07:42)
[2024-09-13] MEDS: HEPARIN IN NS 1000Units/500mL 0 ML ONE (07:42)
[2024-09-13 08:00] VITALS: PULSE 85; RESP 18; O2SAT 90
--- NOTE | 2024-09-13 08:35 | DVHDS2 ---
New Physician D'charge PN Admitting Diagnosis Admitting Diagnosis lower ext wounds Discharge Diagnosis PAD. refused angiogram Operations or Procedures none Reason(s) For Hospitalization Surgery Hospital Course 89 M who comes to ER for worsening lower extremity wounds. He has been receiving wound care to L lower ext at home via . He had a CXR done which was clear, lower ewxt venous doppler showed no DVT however lower ext ct angiogram revealed multifocal PAD, please refer to the CT angio report for further details. He was admitted started on IV ABx and blood cultures were negative and WBC was nml this AM at 9k. He was seen by vascular surgery and recommended for lower extremity angiogram however patient and family refusing the procedure at this time and would like to continue with wound care. Family recommended to follow up outpt with vascular surgery should they change their mind and would like the procedure at a later time. Patient cleared for dc home by vascular. Summer to arrange for all outpt folllow up. Spoke to patients dtr sammy and mahin porras and they understand and at this time do not wish for him to have the angiogram. Treatment Plan Discharge Condition of Discharge Good Disposition Home Discharge Instructions Diet: Consistent carbohydrate, Cardiac 2g Na,low cholest Activity: No Restrictions, As Tolerated Medications: see med sheet Follow Up Care Follow Up/Referral: pcp Discharge Statement: "Patient was advised to return to the ER or call 911 if any headaches, dizziness, shortness of breath, chest pain, abdominal pain, bleeding, fevers, or worsening of medical condition. Patient was counseled about treatment plan, medications, possible side effects, patientverbalized understanding. All questions were answered to the best of my ability. This discharge took greater then 30 minutes in planning, reviewing documentation, counseling the patient, and discussing with other team members." DAVI SIMMOSN MD Sep 13, 2024 08:35
[2024-09-13 09:00] VITALS: BP 122/66; PULSE 85; RESP 18; TEMP 98.1; O2SAT 90
[2024-09-13] MEDS ORDERED: DOXY-286 PO (09:10)
[2024-09-13 10:21] LABS: Hepatitis A Ab IgM Negative; Hepatitis B Core IgM Negative (Negative); Hepatitis B Surface Antigen Negative (Negative); Hepatitis C Antibody Negative (Negative)
[2024-09-13 11:16] LABS: Basophils # (auto) 0 10 ^3/uL (0-0.2); Basophils % (auto) 0.5 % (0.0-2.0); Eosinophils # (auto) 0.2 10 ^3/uL (0-0.8); Hemoglobin 12.9 g/dL (13.5-17.5)
[2024-09-13 11:19] LABS: Eosinophils % (auto) 1.8 % (0.0-7.0); Hematocrit 37.3 % (41.0-53.0); Lymphocytes # (auto) 1.6 10 ^3/uL (0.4-5.4); Lymphocytes % (auto) 17.5 % (10.0-50.0); Mean Corpuscular Hemoglobin 36.5 pg (28.0-32.0); Mean Corpuscular Hgb Conc. 34.5 g/dL (32.0-36.0); Mean Corpuscular Volume 105.7 fL (80.0-100.0); Monocytes % (auto) 10.8 % (0.0-12.0); Neutrophils # (auto) 6.5 10 ^3/uL (1.6-8.6); Neutrophils % (auto) 69.4 % (37.0-80.0); Platelet Count (auto) 146 10^3/uL (140-450); Red Blood Cells 3.53 10^6/uL (4.5-5.90); Red Cell Distribution Width 15.9 % (11.8-14.3); White Blood Cell 9.4 10^3/uL (4.4-10.8)
[2024-09-13 11:36] LABS: Alanine Aminotransferase 33 U/L (7-40); Anion Gap 5 (5-15); BUN/Creatinine Ratio 22.4 (10.0-20.0); Calcium 9.1 mg/dL (8.7-10.4); Carbon Dioxide 28 mmol/L (20-31); Chloride 102 mmol/L (98-107); Glucose 94 mg/dL (74-106); Potassium 3.7 mmol/L (3.5-5.1); Total Protein 6.1 g/dL (5.7-8.2)
[2024-09-13 11:39] LABS: Albumin 2.9 g/dL (3.2-4.8); Alkaline Phosphatase 238 U/L (46-116); Aspartate Aminotransferase 50 U/L (13-40); Bilirubin, Total 3.8 mg/dL (0.2-1.0); Blood Urea Nitrogen 24 mg/dL (9-23); Sodium 135 mmol/L (136-145)
[2024-09-13 13:00] VITALS: BP 112/52; PULSE 97; RESP 16; TEMP 97.8; O2SAT 92
[2024-09-13 13:36] VITALS: BP 122/66; PULSE 85; RESP 18; TEMP 98.1; O2SAT 90
[2024-09-13] MEDS ORDERED: PIPERACILLIN-TAZOB 3.375GM 100 ML IV SCH (19:00)
== END 2024-09-13 17:44 | disposition home or self-care (01) ==
LOC: ER 14:59 → OVERFLOW 09-12 08:17 → SUATTDRO 09-12 08:27 → WEST WING 09-12 22:54
PROVIDERS: ADMIT Student in an Organized Health Care Education/Training Program; ATTEND Student in an Organized Health Care Education/Training Program
DX: S91.301A Unspecified open wound, right foot, initial encounter (principal); S91.302A Unspecified open wound, left foot, initial encounter; I70.201 Unspecified atherosclerosis of native arteries of extremities, right leg; R60.0 Localized edema; L03.115 Cellulitis of right lower limb; K74.60 Unspecified cirrhosis of liver; I10 Essential (primary) hypertension; D69.6 Thrombocytopenia, unspecified; I87.8 Other specified disorders of veins; N40.0 Benign prostatic hyperplasia without lower urinary tract symptoms; J44.9 Chronic obstructive pulmonary disease, unspecified; Z90.49 Acquired absence of other specified parts of digestive tract; Z85.46 Personal history of malignant neoplasm of prostate; Z79.899 Other long term (current) drug therapy; Z85.038 Personal history of other malignant neoplasm of large intestine; Z87.891 Personal history of nicotine dependence; X58.XXXA Exposure to other specified factors, initial encounter; Y93.89 Activity, other specified; Y92.89 Other specified places as the place of occurrence of the external cause; Y99.8 Other external cause status
CPT/HCPCS: 36415; 71046; 73706; 76705; 80053; 80074; 80202; 80307; 81001; 82140; 82565; 83605; 83735; 84439; 84443; 84481; 85025; 85610; 85730; 87040; 87077; 87086; 87186; 87205; 93925; 93970; 96365; 96375; 99291; G0378; J1940; J2270; J2543; J3371; Q9967